=== PATIENT | female | born 1985 | race African-American/Black ===

== ENCOUNTER 2016-05-28 02:13 | Emergency (ER) | payer MEDICARE, MEDICAID ==
[~2016-05-28] VITALS: Ht 162.6 cm; Wt 75.6 kg
[2016-05-28 03:20] VITALS: BP 123/79
== END 2016-05-28 03:22 | disposition home or self-care (01) ==
LOC: ED 02:56
DX: F15.180 Other stimulant abuse with stimulant-induced anxiety disorder (principal); F23 Brief psychotic disorder; F32.9 Major depressive disorder, single episode, unspecified
CPT/HCPCS: 99281; 99284

== ENCOUNTER 2016-07-23 18:53 | Emergency (ER) | payer MEDICAID, MEDICARE ==
[~2016-07-23] VITALS: Ht 162.6 cm; Wt 81.2 kg
[2016-07-23 20:02] VITALS: BP 118/70
[2016-07-23 20:13] LABS: HCG UR OBC PASS
[2016-07-23 20:41] LABS: BLOOD UREA NITROGEN 12 mg/dL (7-18)
== END 2016-07-23 21:03 | disposition home or self-care (01) ==
LOC: ED 20:00
DX: N30.00 Acute cystitis without hematuria (principal); E11.9 Type 2 diabetes mellitus without complications
CPT/HCPCS: 36415; 80048; 81001; 81025; 82040; 85025; 87086

== ENCOUNTER 2016-08-21 21:05 | Observation (INO) | payer MEDICAID ==
[~2016-08-21] VITALS: Ht 162.6 cm; Wt 79.0 kg
[2016-08-21] MEDS ORDERED: LORazepam 1MG TABLET PO ONE (22:00)
[2016-08-21 22:26] LABS: BLOOD UREA NITROGEN 9 mg/dL (7-18)
[2016-08-21 22:27] LABS: ACETAMINOPHEN < 2 mcg/mL (10-30)
[2016-08-22 04:50] VITALS: BP 109/70
[2016-08-22 05:16] LABS: DAU SCREEN DISCLAIMER
[2016-08-22 08:44] VITALS: BP 116/79
[2016-08-22] MEDS ORDERED: CIPROFLOXACIN 500 MG TABLET PO ONE (09:00)
[2016-08-22] MEDS ORDERED: POTASSIUM CHLORIDE 20 MEQ TAB.ER.PRT PO ONE (09:00)
[2016-08-22] MEDS: ENOXAPARIN 40 MG/0.4 ML SQ SCH (12:15)
[2016-08-22] MEDS: LACTOBACILLUS CHEW TABLET PO SCH ×2 (16:00→20:48)
[2016-08-22 20:45] VITALS: BP 120/84
[2016-08-22] MEDS: SULFAMETH./TRIMETHOPRIM DS 800MG/160MG TABLET PO SCH (20:47)
[2016-08-23] MEDS: LACTOBACILLUS CHEW TABLET PO SCH ×4 (05:20→21:48)
[2016-08-23 08:00] VITALS: BP 118/77
[2016-08-23] MEDS: SULFAMETH./TRIMETHOPRIM DS 800MG/160MG TABLET PO SCH ×2 (08:13→21:48)
[2016-08-23] MEDS: ENOXAPARIN 40 MG/0.4 ML SQ SCH (08:23)
[2016-08-23 20:00] VITALS: BP 110/51
[2016-08-24 08:00] VITALS: BP 107/65
[2016-08-24] MEDS: ENOXAPARIN 40 MG/0.4 ML SQ SCH ×3 (09:00→10:10)
[2016-08-24] MEDS: LACTOBACILLUS CHEW TABLET PO SCH ×4 (10:08→21:19)
[2016-08-24] MEDS: SULFAMETH./TRIMETHOPRIM DS 800MG/160MG TABLET PO SCH ×3 (10:08→21:20)
[2016-08-24] MEDS ORDERED: LORazepam 1MG TABLET PO PRN (13:00)
[2016-08-24 19:35] VITALS: BP 110/67
[2016-08-24] MEDS: RISPERIDONE 2 MG TABLET PO SCH ×4 (20:55→21:24)
[2016-08-25] MEDS: LACTOBACILLUS CHEW TABLET PO SCH ×4 (06:41→21:53)
[2016-08-25] MEDS: SULFAMETH./TRIMETHOPRIM DS 800MG/160MG TABLET PO SCH ×2 (08:02→21:53)
[2016-08-25 08:05] VITALS: BP 95/52
[2016-08-25 19:41] VITALS: BP 106/57
[2016-08-25] MEDS: RISPERIDONE 2 MG TABLET PO SCH (21:00)
== END 2016-08-26 03:30 ==
LOC: ED 22:11 → EDIP 23:57 → INTOOBSV 23:57 → 3E 08-22 04:10
PROVIDERS: ADMIT Internal Medicine; ATTEND Internal Medicine
DX: R45.851 Suicidal ideations (principal); E87.6 Hypokalemia; F15.10 Other stimulant abuse, uncomplicated; F17.200 Nicotine dependence, unspecified, uncomplicated; F32.9 Major depressive disorder, single episode, unspecified; F29 Unspecified psychosis not due to a substance or known physiological condition; N39.0 Urinary tract infection, site not specified; Z81.8 Family history of other mental and behavioral disorders
CPT/HCPCS: 36415; 80048; 80307; 80329; 81001; 82040; 84703; 85025; 87086; 99285; G0378; J1650; G0480

== ENCOUNTER 2016-09-18 17:32 | Emergency (ER) | payer MEDICARE, MEDICAID ==
[~2016-09-18] VITALS: Ht 162.6 cm; Wt 69.0 kg
[2016-09-18 18:22] LABS: DAU SCREEN DISCLAIMER
[2016-09-18 18:29] LABS: ASPARTATE AMINO TRANSFERASE 49 U/L (15-37); BLOOD UREA NITROGEN 21 mg/dL (7-18)
[2016-09-18 18:35] LABS: ACETAMINOPHEN < 2 mcg/mL (10-30)
[2016-09-18 19:15] VITALS: BP 118/70
[2016-09-18] MEDS ORDERED: ARIP30TA PO (20:05)
[2016-09-18] MEDS ORDERED: DIVA-68 PO (20:05)
== END 2016-09-18 20:14 | disposition home or self-care (01) ==
LOC: ED 19:38
DX: N30.00 Acute cystitis without hematuria (principal); Z88.0 Allergy status to penicillin
CPT/HCPCS: 36415; 80053; 80307; 80329; 81001; 85025; 87086; 99284; G0480